=== PATIENT | female | born 1995 | race Caucasian/White ===

== ENCOUNTER 2021-01-10 10:28 | Inpatient (IN) | payer OTHER ==
[~2021-01-10] VITALS: Ht 160 cm; Wt 56.7 kg
[~2021-01-10 10:28] MED LIST: LIDOCAINE HCL 2%/EPINEPHRINE 1:100,000 20 ML VIAL INFIL ONE
[2021-01-10] MEDS ORDERED: MAGNESIUM 4 G PREMIX 100 ML IV SCH (11:30)
[2021-01-10] MEDS ORDERED: SUCCINYLCHOLINE CHLORIDE 200MG/10ML IV ONE (11:58)
[2021-01-10] MEDS ORDERED: PROPOFOL 200MG/20ML VIAL IV ONE (11:58)
[2021-01-10] MEDS: MAGNESIUM 20 G PREMIX (L & D) 500 ML IV SCH ×2 (12:15→21:55)
[2021-01-10 12:31] LABS: BASOPHILS % 0.2 % (0.0-2.0); EOSINOPHILS % 0.3 % (0.0-5.0); HEMATOCRIT. 36.2 % (36.0-48.0); HEMOGLOBIN. 11.5 g/dL (12.0-16.0); LYMPHOCYTES % 20.6 % (20.0-50.0); MEAN CORPUSCULAR HEMOGLOBIN 27.4 pg (28.0-32.0); MEAN CORPUSCULAR VOLUME 86.1 fL (81.0-99.0); MEAN PLATELET VOLUME 11.5 fl (7.4-10.4); MONOCYTES % 5.5 % (2.0-8.0); NEUTROPHILS % 73.4 % (40.0-76.0); PLATELET 259 x1000/uL (130-400); RED BLOOD CELL COUNT 4.21 mill/uL (4.2-5.4); RED CELL DISTRIBUTION WIDTH 15.4 % (11.6-14.6)
[2021-01-10 12:32] LABS: CHLORIDE 108 mEq/L (98-107)
[2021-01-10 12:34] LABS: INR 0.9; PARTIAL THROMBOPLASTIN TIME 28.8 sec (23.4-31.0); PROTHROMBIN TIME 9.8 sec (9.6-11.0)
[2021-01-10 12:40] LABS: CLARITY URINE CLEAR (CLEAR); COLOR URINE DARK YELLOW (YELLOW); KETONES URINE TRACE (NEGATIVE); LEUKOCYTE ESTERASE URINE 1+ (NEGATIVE); NITRITE URINE NEGATIVE (NEGATIVE); OCCULT BLOOD URINE 2+ (NEGATIVE); PROTEIN URINE 4+ (NEGATIVE); SPECIFIC GRAVITY URINE 1.037 (1.005-1.030)
[2021-01-10 12:58] LABS: HEPATITIS B SURFACE ANTIGEN NEGATIVE
[2021-01-10 13:02] LABS: *BARBITURATES SCREEN URINE NEGATIVE (NEGATIVE); *BENZODIAZEPINES SCREEN URINE NEGATIVE (NEGATIVE); *COCAINE SCREEN URINE NEGATIVE (NEGATIVE); OPIATES URINE SCREEN NEGATIVE (NEGATIVE); PHENCYCLIDINE URINE SCREEN NEGATIVE (NEGATIVE)
[2021-01-10 13:03] LABS: *AMPHETAMINES SCREEN URINE NEGATIVE (NEGATIVE); CANNABINOID URINE SCREEN NEGATIVE (NEGATIVE)
[2021-01-10 13:10] LABS: METHADONE URINE SCREEN PRESUMTIVE POSITIVE (NEGATIVE)
[2021-01-10] MEDS ORDERED: ROPIVACAINE HCL/PF EPIDURAL 200 ML EPI ONE (13:15)
[2021-01-10] MEDS: LACTATED RINGERS 1,000 ML IV SCH ×3 (13:30→15:26)
[2021-01-10] MEDS ORDERED: NALOXONE HCL 0.4 MG/ML 1ML VIAL IM PRN (13:45)
[2021-01-10] MEDS ORDERED: LIDOCAINE HCL 1% 20ML VIAL (Pyxis) INJ INFIL SCH (13:45)
[2021-01-10] MEDS ORDERED: DEXT 5%/LR + PITOCIN 20UNITS/L 1,000 ML IV SCH (13:45)
[2021-01-10] MEDS ORDERED: CARBOPROST TROMETHAMINE 250 MCG/ML AMPUL IM PRN (13:45)
[2021-01-10] MEDS ORDERED: METHYLERGONOVINE MALEATE 0.2 MG/ML IM PRN (13:45)
[2021-01-10] MEDS: METHADONE HCL 5MG TABLET PO SCH (13:51)
[2021-01-10] MEDS ORDERED: PENICILLIN G POTASSIUM 5 MMU in DEXT 5% WATER 100 ML IV SCH (14:00)
[2021-01-10] MEDS: ONDANSETRON HCL 4MG/2ML INJ IV PRN ×2 (15:55→22:07)
[2021-01-10] MEDS: PENICILLIN G POTASSIUM 2.5 MMU in DEXTROSE 5% WATER 50 ML IV SCH ×2 (19:51→23:30)
[2021-01-10] MEDS ORDERED: ROPIVACAINE HCL/PF EPIDURAL 200 ML EP SCH (20:15)
[2021-01-11] MEDS ORDERED: METHADONE HCL 5MG TABLET PO SCH (02:00)
[2021-01-11] MEDS: METHADONE HCL 5MG TABLET PO SCH (02:04)
[2021-01-11] MEDS: PENICILLIN G POTASSIUM 2.5 MMU in DEXTROSE 5% WATER 50 ML IV SCH (03:36)
[2021-01-11 05:25] LABS: BASOPHILS % 0.1 % (0.0-2.0); HEMATOCRIT. 36.5 % (36.0-48.0); HEMOGLOBIN. 11.6 g/dL (12.0-16.0); LYMPHOCYTES % 9.2 % (20.0-50.0); MEAN CORPUSCULAR HEMOGLOBIN 27.5 pg (28.0-32.0); MEAN CORPUSCULAR VOLUME 86.3 fL (81.0-99.0); MEAN PLATELET VOLUME 11.3 fl (7.4-10.4); MONOCYTES % 5.5 % (2.0-8.0); NEUTROPHILS % 85.2 % (40.0-76.0); PLATELET 266 x1000/uL (130-400); RED BLOOD CELL COUNT 4.23 mill/uL (4.2-5.4); RED CELL DISTRIBUTION WIDTH 15.1 % (11.6-14.6)
[2021-01-11 05:34] LABS: CHLORIDE 102 mEq/L (98-107)
[2021-01-11 06:07] LABS: D-DIMER 2.8 mg/L FEU (<0.50); INR 0.9; PARTIAL THROMBOPLASTIN TIME 26.1 sec (23.4-31.0); PROTHROMBIN TIME 9.4 sec (9.6-11.0)
[2021-01-11] MEDS ORDERED: IBUPROFEN 800MG TABLET PO PRN (06:45)
[2021-01-11] MEDS ORDERED: HEMORRHOIDAL SUPP PR PRN (06:45)
[2021-01-11] MEDS ORDERED: LANOLIN OINT 7GM TUBE TOP PRN (06:45)
[2021-01-11] MEDS ORDERED: BISACODYL 10MG SUPP PR PRN (06:45)
[2021-01-11] MEDS ORDERED: RHO(D) IMMUNE GLOBULIN 300 MCG/SYR IM PRN (06:45)
[2021-01-11] MEDS ORDERED: BENZOCAINE/LANOLIN/ALOE VERA SPRAY TOP PRN (06:45)
[2021-01-11] MEDS ORDERED: IBUPROFEN 400MG TABLET PO PRN (06:45)
[2021-01-11] MEDS ORDERED: GLYCERIN/WITCH HAZEL LEAF MEDICATED PAD TOP PRN (06:45)
[2021-01-11] MEDS ORDERED: DEXT 5%/LR + PITOCIN 20UNITS/L 1,000 ML IV SCH (06:45)
[2021-01-11] MEDS ORDERED: DIPHENHYDRAMINE 25MG CAPSULE PO PRN (06:45)
[2021-01-11 09:00] VITALS: BP 103/61
[2021-01-11] MEDS: PRENATAL VIT/FE FUMARATE/FA TABLET PO SCH (09:00)
[2021-01-11] MEDS: MAGNESIUM/ALUMINUM HYDROXIDE/SIMETHICONE 30ML UDC PO SCH ×2 (10:25→21:29)
[2021-01-11] MEDS: PHENOBARBITAL 30 MG TABLET PO SCH ×2 (10:25→21:29)
[2021-01-11 17:00] VITALS: BP 134/85
[2021-01-11 20:00] VITALS: BP 137/89
[2021-01-11] MEDS: DOCUSATE SODIUM 100MG CAPSULE PO SCH (21:29)
[2021-01-11] MEDS: SIMETHICONE 80MG TABLET CHEW PO SCH (21:30)
[2021-01-12] MEDS: METHADONE HCL 5MG TABLET PO SCH ×2 (01:39→13:30)
[2021-01-12 01:45] VITALS: BP 124/82
[2021-01-12] MEDS ORDERED: ACETAMINOPHEN WITH CODEINE 300/30MG TABLET PO PRN (06:45)
[2021-01-12] MEDS: FERROUS SULFATE 325MG TABLET PO SCH ×3 (07:30→16:45)
[2021-01-12] MEDS: SIMETHICONE 80MG TABLET CHEW PO SCH ×4 (09:00→21:10)
[2021-01-12] MEDS: MAGNESIUM/ALUMINUM HYDROXIDE/SIMETHICONE 30ML UDC PO SCH ×4 (09:00→21:00)
[2021-01-12] MEDS: PHENOBARBITAL 30 MG TABLET PO SCH ×2 (09:57→16:45)
[2021-01-12 10:17] VITALS: BP 107/69
[2021-01-12 11:31] LABS: BASOPHILS % 0.1 % (0.0-2.0); LYMPHOCYTES % 11.2 % (20.0-50.0); MEAN CORPUSCULAR HEMOGLOBIN 27.5 pg (28.0-32.0); MEAN CORPUSCULAR VOLUME 86.9 fL (81.0-99.0); MEAN PLATELET VOLUME 10.5 fl (7.4-10.4); MONOCYTES % 5.9 % (2.0-8.0); NEUTROPHILS % 82.8 % (40.0-76.0); PLATELET 328 x1000/uL (130-400); RED BLOOD CELL COUNT 2.28 mill/uL (4.2-5.4); RED CELL DISTRIBUTION WIDTH 15.3 % (11.6-14.6)
[2021-01-12 11:37] LABS: HEMOGLOBIN. 6.3 g/dL (12.0-16.0)
[2021-01-12 11:38] LABS: HEMATOCRIT. 19.8 % (36.0-48.0)
[2021-01-12 16:04] VITALS: BP 128/68
[2021-01-12 20:00] VITALS: BP 117/76
[2021-01-12] MEDS: DOCUSATE SODIUM 100MG CAPSULE PO SCH (21:00)
[2021-01-13] MEDS: METHADONE HCL 5MG TABLET PO SCH (00:58)
[2021-01-13 04:00] VITALS: BP 124/81
[2021-01-13] MEDS ORDERED: IBUP-2030 PO (06:34)
[2021-01-13] MEDS ORDERED: FERR325T23 PO (06:34)
[2021-01-13 07:45] VITALS: BP 127/86
[2021-01-13] MEDS: FERROUS SULFATE 325MG TABLET PO SCH (08:15)
[2021-01-13] MEDS: PRENATAL VIT/FE FUMARATE/FA TABLET PO SCH (08:16)
[2021-01-13] MEDS: MAGNESIUM/ALUMINUM HYDROXIDE/SIMETHICONE 30ML UDC PO SCH (08:16)
[2021-01-13] MEDS: PHENOBARBITAL 30 MG TABLET PO SCH (08:23)
== END 2021-01-13 10:10 | disposition home or self-care (01) | DRG 560 ==
LOC: OBSVTOIN 10:28 → 8 EST LDRP 10:28 → 8EST 01-11 08:40
PROVIDERS: ADMIT Obstetrics & Gynecology; ATTEND Obstetrics & Gynecology
PROC: 10E0XZZ Delivery of Products of Conception, External Approach (ICD-10-PCS; principal; 2021-01-11)
PROC: 0KQM0ZZ Repair Perineum Muscle, Open Approach (ICD-10-PCS; 2021-01-11)
PROC: 3E0R3BZ Introduction of Anesthetic Agent into Spinal Canal, Percutaneous Approach (ICD-10-PCS; 2021-01-11)
PROC: 00HU33Z Insertion of Infusion Device into Spinal Canal, Percutaneous Approach (ICD-10-PCS; 2021-01-11)
DX: O99.324 Drug use complicating childbirth (principal); Z37.0 Single live birth; F16.10 Hallucinogen abuse, uncomplicated; E87.1 Hypo-osmolality and hyponatremia; O99.354 Diseases of the nervous system complicating childbirth; G40.909 Epilepsy, unspecified, not intractable, without status epilepticus; O77.0 Labor and delivery complicated by meconium in amniotic fluid; O99.284 Endocrine, nutritional and metabolic diseases complicating childbirth; F11.10 Opioid abuse, uncomplicated; Z20.822 Contact with and (suspected) exposure to COVID-19; O70.1 Second degree perineal laceration during delivery; R74.8 Abnormal levels of other serum enzymes; O90.81 Anemia of the puerperium; D64.9 Anemia, unspecified; Z3A.39 39 weeks gestation of pregnancy
CPT/HCPCS: 36415; 76805; 80053; 80305; 80358; 80359; 81003; 83735; 84550; 85025; 85379; 85384; 86592; 86703; 86762; 86850; 86900; 87340; 87426; G0378; J0330; J2210; J2405; J2540; J2590; J2704; J2795; J3475; J3490; J7040; J7060; J7120